=== PATIENT | female | born 1965 | race Two or more races ===

== ENCOUNTER 2017-03-12 06:10 | Emergency (ER) | payer MEDICAID ==
[~2017-03-12] VITALS: Ht 170.2 cm; Wt 59.0 kg
[~2017-03-12 06:10] MED LIST: CYCLOBENZAPRINE10 MG ORAL; IBUPROFEN600 MG ORAL; NKM
[2017-03-12 06:29] VITALS: BP 130/86
--- NOTE | 2017-03-12 06:41 | Emergency Room Report ---
History of Present Illness General Chief Complaint: Flu Like Symptoms Source: Patient Present Illness HPI Patient is a 51-year-old female who presented after increased nasal congestion and coughing. The patient gradual onset of symptoms. She had associated increased sinus pressure. She had been having cough for greater than 2 weeks and not 10 days as previously documented by nursing staff. The patient stated that she had increased facial pain. She stated that she had worsened symptoms with productive cough with yellow-green sputum. The patient states she is an intermittent smoker. She denies any vomiting or diarrhea. She denies sick contacts Allergies: Coded Allergies: No Known Allergies (Unverified , 06/14/16) Patient History Past Medical History: see triage record Reviewed Nursing Documentation: PMH: Agreed, PSxH: Agreed Nursing Documentation-PMH Past Medical History: No Stated History Review of Systems All Other Systems: negative except mentioned in HPI Physical Exam Vital Signs Date Time Temp Pulse Resp B/P (MAP) Pulse Ox O2 Delivery O2 Flow Rate FiO2 03/12/17 06:16 98.1 91 16 130/86 99 Room Air Sp02 EP Interpretation: reviewed, normal General Appearance: normal inspection, well appearing, no apparent distress, alert, GCS 15 Head: atraumatic ENT: normal ENT inspection, hearing grossly normal, normal voice, nasal congestion, other - nasal septum deviation, congestion, nasal discharge Neck: normal inspection, full range of motion, supple, no bony tend Respiratory: normal inspection, lungs clear, normal breath sounds, no respiratory distress, no retraction, no wheezing Cardiovascular #1: regular rate, rhythm, no edema Gastrointestinal: normal inspection, normal bowel sounds, non tender, soft, no guarding, no hernia Genitourinary: no CVA tenderness Musculoskeletal: normal inspection, back normal, normal range of motion Neurologic: normal inspection, alert, oriented x3, responsive, retread technician III-XII nml as tested, motor strength/tone normal, speech normal Psychiatric: normal inspection, judgement/insight normal, mood/affect normal Skin: normal inspection, normal color, no rash Medical Decision Making Diagnostic Impression: Primary Impression: Sinusitis ER Course Patient presented for cough. Differential diagnosis included but was not limited to sinusitis, bronchitis, pneumonia, pulmonary embolism, pericarditis, asthma, foreign body. Chest X-Ray Diagnostic Results Chest X-Ray Diagnostic Results : Chest X-Ray Ordered: Yes # of Views/Limited/Complete: 1 View Indication: Shortness of Breath EP Interpretation: Yes Interpretation: no consolidation, no effusion, no acute cardiopulmonary disease Impression: No acute disease Electronically Signed by: Electronically signed by Dr. Leonidas Montiel M.D. Last Vital Signs Date Time Temp Pulse Resp B/P (MAP) Pulse Ox O2 Delivery O2 Flow Rate FiO2 03/12/17 06:29 91 16 Room Air 03/12/17 06:29 98.1 130/86 99 Status: improved Disposition: HOME, SELF-CARE Condition: Stable Scripts Azithromycin* (ZITHROMAX*) 250 Mg Tablet 250 MG ORAL DAILY, #6 TAB 0 Refills Take two tables once daily for 1 day, then one tablet once daily for 4 days. Prov: Leonidas Montiel 03/12/17 Prednisone* (PREDNISONE*) 20 Mg Tablet 40 MG ORAL DAILY, #8 TAB Prov: Leonidas Montiel 03/12/17 Loratadine/Pseudoephedrine (CLARITIN-D 24 HOUR TABLET) 1 Each Tab.er.24h 1 TAB PO DAILY, #20 TAB Prov: Leonidas Montiel 03/12/17 Mometasone Furoate (NASONEX) 17 Gm [place].pump 2 SPRAYS NASAL DAILY, #17 GM 0 Refills Prov: Leonidas Montiel 03/12/17 Leonidas Montiel Mar 12, 2017 06:41
[2017-03-12] MEDS ORDERED: NASONEX17 GM NASAL (06:43)
[2017-03-12] MEDS ORDERED: CLARITIN-D 241 EACH PO (06:43)
[2017-03-12] MEDS ORDERED: Albuterol ud Inhalation HHN ONE (06:45)
[2017-03-12] MEDS ORDERED: ZITHROMAX250 MG ORAL (07:03)
[2017-03-12] MEDS ORDERED: PREDNISONE20 MG ORAL (07:03)
[2017-03-12 07:12] VITALS: BP 130/86
--- NOTE | 2017-03-12 11:06 | Diagnostic Imaging Report ---
Indication: SOB Technique: One view of the chest Comparison: none Findings: Lungs and pleural spaces are clear. Heart size is normal. Impression: No acute process
== END 2017-03-12 07:12 | disposition home or self-care (01) ==
LOC: EMR 06:39
DX: J32.9 Chronic sinusitis, unspecified (principal)
CPT/HCPCS: 71010; 99284

== ENCOUNTER 2017-08-30 21:06 | Emergency (ER) | payer MEDICAID ==
[~2017-08-30] VITALS: Ht 170.2 cm; Wt 60.3 kg
[~2017-08-30 21:06] MED LIST changes: +CLARITIN-D 241 EACH PO; +NASONEX17 GM NASAL; +PREDNISONE20 MG ORAL; +ZITHROMAX250 MG ORAL
[2017-08-30 21:20] VITALS: BP 117/76
[2017-08-30] MEDS ORDERED: AZITHROMYCIN250 MG ORAL (21:51)
[2017-08-30] MEDS ORDERED: IBUPROFEN600 MG ORAL (21:51)
--- NOTE | 2017-08-30 21:51 | Emergency Room Report ---
History of Present Illness General Chief Complaint: Flu Like Symptoms Source: Patient Present Illness HPI Is a 52-year-old female with an past medical history. She presents with chief complaint of sore throat and fever. Onset yesterday. Fever subjective but she said she felt very hot and has chills. Throat pain is 7 out of 10. Worse with swallowing. No cough or congestion. No nausea no vomiting. No urinary complaint. Allergies: Coded Allergies: No Known Allergies (Unverified , 06/14/16) Patient History Past Medical History: see triage record, old chart reviewed Past Surgical History: none Pertinent Family History: none Social History: Denies: smoking Last Menstrual Period: 3 weeks ago Now: No Immunizations: other Reviewed Nursing Documentation: PMH: Agreed, PSxH: Agreed Nursing Documentation-PMH Past Medical History: No Stated History Review of Systems Constitutional: Reports: fever Eye: Denies: eye pain, blurred vision ENT: Reports: throat pain, Denies: ear pain, nose congestion, throat swelling Respiratory: Denies: cough, shortness of breath Cardiovascular: Denies: chest pain, palpitations Gastrointestinal: Denies: abdominal pain, diarrhea, nausea, vomiting Musculoskeletal: Denies: back pain, joint pain Skin: Denies: rash Neurological: Denies: headache, numbness Endocrine: Denies: increased thirst, increased urine Hematologic/Lymphatic: Denies: easy bruising All Other Systems: negative except mentioned in HPI Physical Exam Vital Signs Date Time Temp Pulse Resp B/P (MAP) Pulse Ox O2 Delivery O2 Flow Rate FiO2 08/30/17 21:12 100.6 102 18 117/76 99 100.6 vitals with fever Sp02 EP Interpretation: reviewed, normal General Appearance: well appearing, no apparent distress, alert Head: normocephalic, atraumatic Eyes: bilateral eye PERRL, bilateral eye EOMI ENT: hearing grossly normal, tonsillar swelling, pharyngeal erythema, tonsillar exudate Neck: full range of motion, supple, no meningismus Respiratory: chest non-tender, lungs clear, normal breath sounds Cardiovascular #1: regular rate, rhythm, no murmur Gastrointestinal: normal bowel sounds, non tender, no mass, no organomegaly, no bruit, non-distended Musculoskeletal: back normal, gait/station normal, normal range of motion Psychiatric: mood/affect normal Skin: warm/dry Medical Decision Making Diagnostic Impression: Primary Impression: Acute tonsillitis Qualified Codes: J03.90 - Acute tonsillitis, unspecified ER Course Patient with acute tonsillitis, most likely strep since she has no other symptoms of viral illness. No evidence of peritonsillar abscess or retropharyngeal abscess. No evidence of Micah angina. No sepsis. We'll discharge home. Last Vital Signs Date Time Temp Pulse Resp B/P (MAP) Pulse Ox O2 Delivery O2 Flow Rate FiO2 08/30/17 21:12 100.6 102 18 117/76 99 100.6 Status: improved Disposition: HOME, SELF-CARE Condition: Stable Scripts Azithromycin* (ZITHROMAX*) 250 Mg Tablet 250 MG ORAL DAILY, #6 TAB 0 Refills Take two tablets by mouth today, then take one tablet by mouth daily for four days Prov: TERI CUMMINGS M.D. 08/30/17 Ibuprofen* (MOTRIN*) 600 Mg Tablet 600 MG ORAL THREE TIMES A DAY, #30 TAB 0 Refills Prov: TERI CUMMINGS M.D. 08/30/17 Additional Instructions: Follow-up with your in 7 days. Lev iyer. Return if worse. TERI CUMMINGS M.D. Aug 30, 2017 21:51
[2017-08-30 21:58] VITALS: BP 117/76
== END 2017-08-30 23:00 | disposition home or self-care (01) ==
LOC: EMR 22:53
DX: J03.90 Acute tonsillitis, unspecified (principal)
CPT/HCPCS: 99284; J7512

== ENCOUNTER 2018-02-13 01:13 | Emergency (ER) | payer MEDICAID ==
[~2018-02-13] VITALS: Ht 172.7 cm; Wt 59.0 kg
[~2018-02-13 01:13] MED LIST changes: +AZITHROMYCIN250 MG ORAL
[2018-02-13 01:20] VITALS: BP 131/80
--- NOTE | 2018-02-13 01:27 | Emergency Room Report ---
History of Present Illness General Chief Complaint: Pain Source: Patient Present Illness HPI Is a 52-year-old female with no past medical history. She presents with right rib pain. She woke up with his pain. Sharp in nature. Worse with palpation. Worse with twisting motion. No trauma. No fever chills but no nausea no vomiting. No dysuria frequency or hematuria. Pain is 8 out of 10. Allergies: Coded Allergies: No Known Allergies (Unverified , 06/14/16) Patient History Past Medical History: see triage record, old chart reviewed Past Surgical History: other Pertinent Family History: none Social History: Reports: smoking Last Menstrual Period: n/a Now: No Immunizations: other Reviewed Nursing Documentation: PMH: Agreed; PSxH: Agreed Nursing Documentation-PMH Past Medical History: No Stated History Review of Systems Eye: Denies: eye pain, blurred vision ENT: Denies: ear pain, nose congestion, throat swelling Respiratory: Denies: cough, shortness of breath Cardiovascular: Reports: chest pain; Denies: palpitations Gastrointestinal: Denies: abdominal pain, diarrhea, nausea, vomiting Musculoskeletal: Denies: back pain, joint pain Skin: Denies: rash Neurological: Denies: headache, numbness Endocrine: Denies: increased thirst, increased urine Hematologic/Lymphatic: Denies: easy bruising All Other Systems: negative except mentioned in HPI Physical Exam Vital Signs Date Time Temp Pulse Resp B/P (MAP) Pulse Ox O2 Delivery O2 Flow Rate FiO2 02/13/18 01:18 98.0 75 16 131/80 97 Room Air 98.1 Vitals normal Sp02 EP Interpretation: reviewed, normal General Appearance: well appearing, no apparent distress, alert Head: normocephalic, atraumatic Eyes: bilateral eye PERRL, bilateral eye EOMI ENT: hearing grossly normal, normal pharynx Neck: full range of motion, supple, no meningismus Respiratory: lungs clear, normal breath sounds, other - tenderness to the inferior and lateral right rib. No ecchymosis. No rash. Cardiovascular #1: regular rate, rhythm, no murmur Gastrointestinal: normal bowel sounds, non tender, no mass, no organomegaly, no bruit, non-distended Musculoskeletal: back normal, gait/station normal, normal range of motion Psychiatric: mood/affect normal Skin: warm/dry Medical Decision Making Diagnostic Impression: Primary Impression: Rib pain on right side Additional Impression: UTI (urinary tract infection) Qualified Codes: N30.00 - Acute cystitis without hematuria ER Course Patient presents with rib pain. No fracture dislocation. No evidence of ACS. Doubt PE since patient is not short of breath. Not tachycardic or hypoxic. Pain is very reproducible. She has no right upper quadrant pain to indicate gallbladder/biliary colic. This may be zoster but there is no rash. Other X-Ray Diagnostic Results Other X-Ray Diagnostic Results : X-Ray ordered: right ribs x-rays # of Views/Limited Vs Complete: 4 View Indication: Pain EP Interpretation: Yes Interpretation: no dislocation, no soft tissue swelling, no fractures Impression: No acute disease Electronically Signed by: Axel Martinez MD Last Vital Signs Date Time Temp Pulse Resp B/P (MAP) Pulse Ox O2 Delivery O2 Flow Rate FiO2 02/13/18 01:18 98.0 75 16 131/80 97 Room Air 98.1 Status: improved Disposition: HOME, SELF-CARE Condition: Stable Scripts Ibuprofen* (MOTRIN*) 600 Mg Tablet 600 MG ORAL THREE TIMES A DAY, #30 TAB 0 Refills Prov: AXEL MARTINEZ M.D. 02/13/18 Additional Instructions: Follow-up with your doctor in 7 days. Return if symptom worsen. AXEL MARTINEZ M.D. Feb 13, 2018 01:27
[2018-02-13 01:35] LABS: BILIRUBIN, URINE NEGATIVE (NEGATIVE); GLUCOSE, URINE (UA) NEGATIVE (NEGATIVE); KETONES,URINE NEGATIVE (NEGATIVE); LEUKOCYTE ESTERASE ,URINE 1+ (NEGATIVE); NITRITE,URINE NEGATIVE (NEGATIVE); PH,URINE 7 (4.5-8.0); PROTEIN,URINE NEGATIVE (NEGATIVE); UROBILINOGEN,URINE NORMAL MG/DL (0.0-1.0)
[2018-02-13 01:40] LABS: APPEARANCE,URINE CLOUDY; COLOR,URINE YELLOW
[2018-02-13] MEDS ORDERED: IBUPROFEN600 MG ORAL (01:53)
[2018-02-13] MEDS ORDERED: NITROFURANTOIN100 M2 ORAL (01:54)
[2018-02-13] MEDS ORDERED: Bacitracin Oint UD TOPIC ONE (02:00)
[2018-02-13 02:01] VITALS: BP 131/80
--- NOTE | 2018-02-13 11:21 | Diagnostic Imaging Report ---
Indication: Right chest pain Comparison: None Findings: 3 view rib series performed on the right side. There is no pneumothorax or evidence of a pleural effusion. The right lung appears clear. No acute fracture identified. IMPRESSION: No acute fracture identified
== END 2018-02-13 02:05 | disposition home or self-care (01) ==
LOC: EMR 01:41
DX: N39.0 Urinary tract infection, site not specified (principal); R07.81 Pleurodynia
CPT/HCPCS: 81003; 87086; 99283

== ENCOUNTER 2018-05-23 14:09 | Emergency (ER) | payer MEDICAID ==
[~2018-05-23] VITALS: Ht 170.2 cm; Wt 59.0 kg
[~2018-05-23 14:09] MED LIST changes: +NITROFURANTOIN100 M2 ORAL
[2018-05-23] MEDS ORDERED: NKM (15:08)
--- NOTE | 2018-05-23 15:42 | Emergency Room Report ---
History of Present Illness General Chief Complaint: Upper Respiratory Illness Source: Family Member Present Illness HPI 53-year-old female with no significant past medical history her complaining of 2 weeks of sinus pressure and pain with green mucus. She denies cough, fever, chills, sore throat. She denies SOB, chest pain, palpitation, no other associated symptoms. She has been taking DayQuil and NyQuil with minimal symptom relief. As dysuria, abdominal pain, nausea vomiting, no other associated symptoms Allergies: Coded Allergies: No Known Allergies (Unverified , 06/14/16) Patient History Past Medical History: see triage record Past Surgical History: none Pertinent Family History: unable to obtain Now: No Immunizations: UTD Reviewed Nursing Documentation: PMH: Agreed; PSxH: Agreed Nursing Documentation-PMH Past Medical History: No Stated History Review of Systems All Other Systems: negative except mentioned in HPI Physical Exam Vital Signs Date Time Temp Pulse Resp B/P (MAP) Pulse Ox O2 Delivery O2 Flow Rate FiO2 05/23/18 15:21 97.7 59 18 144/92 98 Room Air Sp02 EP Interpretation: reviewed, normal General Appearance: normal inspection, well appearing, no apparent distress, alert, GCS 15 Head: normocephalic, atraumatic Eyes: bilateral eye normal inspection, bilateral eye PERRL ENT: hearing grossly normal, no angioedema, normal voice, TMs + canals normal, pharyngeal erythema, other - left frontal and maxillary sinuses tender to palpation Neck: normal inspection, full range of motion, supple Respiratory: normal inspection, chest non-tender, lungs clear, no respiratory distress, no retraction, no accessory muscle use, no wheezing Cardiovascular #1: normal inspection, no edema, no gallop, no murmur Gastrointestinal: normal inspection, non tender, soft Rectal: deferred Genitourinary: deferred Musculoskeletal: normal inspection, back normal Neurologic: normal inspection, alert, oriented x3, responsive Psychiatric: normal inspection, judgement/insight normal Lymphatic: normal inspection, no adenopathy Medical Decision Making PA Attestation all diagnosis and treatment plans were reviewed and discussed with my supervising physician Dr. Garduno Diagnostic Impression: Primary Impression: Sinusitis ER Course 53-year-old female with no significant past medical history her complaining of 2 weeks of sinus pressure and pain with green mucus. She denies cough, fever, chills, sore throat. She denies SOB, chest pain, palpitation, no other associated symptoms. She has been taking DayQuil and NyQuil with minimal symptom relief. As dysuria, abdominal pain, nausea vomiting, no other associated symptoms Ddx considered but are not limited to sinusitis, URI, bronchitis Vital signs: are WNL, pt. is afebrile H&PE are most consistent with sinusitis ORDERS: Augmentin, Flonase ED INTERVENTIONS: None required at this time. DISCHARGE: At this time pt. is stable for d/c to home. Will provide printed patient care instructions, and any necessary prescriptions. Care plan and follow up instructions have been discussed with the patient prior to discharge. Last Vital Signs Date Time Temp Pulse Resp B/P (MAP) Pulse Ox O2 Delivery O2 Flow Rate FiO2 05/23/18 15:21 97.7 59 18 144/92 98 Room Air Disposition: HOME, SELF-CARE Condition: Stable Scripts Fluticasone Propionate (Flonase Allergy Relief) 9.9 Ml [place].susp 2 PUFFS NS BID, #1 SPRAY Prov: Jason Wen 05/23/18 Amoxicillin/Potassium Clav 875-125* (AUGMENTIN 875-125 TABLET*) 1 Each Tablet 1 TAB ORAL TWICE A DAY for 10 Days, #20 TAB Prov: Jason Wen 05/23/18 Patient Instructions: Sinusitis, Adult, [id number] Jason Wen May 23, 2018 15:42
[2018-05-23] MEDS ORDERED: AUGMENTIN 875-1 EAC1 ORAL (15:43)
[2018-05-23] MEDS ORDERED: FLONASE ALLERG9.9 ML NS (15:43)
[2018-05-23 15:51] VITALS: BP 142/87
[2018-05-23 15:52] VITALS: BP 142/87
== END 2018-05-23 16:00 | disposition home or self-care (01) ==
LOC: EMR 15:00
DX: J32.9 Chronic sinusitis, unspecified (principal)
CPT/HCPCS: 99283

== ENCOUNTER 2018-08-29 05:25 | Emergency (ER) | payer MEDICAID ==
[~2018-08-29] VITALS: Ht 170.2 cm; Wt 60.8 kg
[~2018-08-29 05:25] MED LIST changes: +AUGMENTIN 875-1 EAC1 ORAL; +FLONASE ALLERG9.9 ML NS
[2018-08-29 05:30] VITALS: BP 128/77
--- NOTE | 2018-08-29 05:30 | NUR ---
ED Nurse Note: pt walked in with c/o left wrist pain x 3 weeks. denies trauma. Pt is AO x 4times, VSS, on room air no distress. DEIDRAD seen Pt at bedside.
--- NOTE | 2018-08-29 05:40 | Emergency Room Report ---
History of Present Illness General Chief Complaint: Pain Source: Patient Present Illness HPI Is a 53-year-old female with no past medical history. She presents with chief complaint of left wrist pain. No trauma. Onset for about 2 months now. Worse with movement. Localized to the radial aspect of the left wrist. She is right- hand dominant. Pain is 7 out of 10. Worse with movement. No fever chills but no drainage. Allergies: Coded Allergies: No Known Allergies (Unverified , 06/14/16) Patient History Past Medical History: see triage record, old chart reviewed Past Surgical History: other Pertinent Family History: none Social History: Denies: smoking Last Menstrual Period: jun 2018 Now: No Immunizations: other Reviewed Nursing Documentation: PMH: Agreed; PSxH: Agreed Nursing Documentation-PMH Past Medical History: No Stated History Review of Systems Eye: Denies: eye pain, blurred vision ENT: Denies: ear pain, nose congestion, throat swelling Respiratory: Denies: cough, shortness of breath Cardiovascular: Denies: chest pain, palpitations Gastrointestinal: Denies: abdominal pain, diarrhea, nausea, vomiting Musculoskeletal: Reports: joint pain; Denies: back pain Skin: Denies: rash Neurological: Denies: headache, numbness Endocrine: Denies: increased thirst, increased urine Hematologic/Lymphatic: Denies: easy bruising All Other Systems: negative except mentioned in HPI Physical Exam Vital Signs Date Time Temp Pulse Resp B/P (MAP) Pulse Ox O2 Delivery O2 Flow Rate FiO2 08/29/18 05:28 97.9 78 16 132/88 100 Room Air vitals normal Sp02 EP Interpretation: reviewed, normal General Appearance: well appearing, no apparent distress, alert Head: normocephalic, atraumatic Eyes: bilateral eye PERRL, bilateral eye EOMI ENT: hearing grossly normal, normal pharynx Neck: full range of motion, supple, no meningismus Respiratory: chest non-tender, lungs clear, normal breath sounds Cardiovascular #1: regular rate, rhythm, no murmur Gastrointestinal: normal bowel sounds, non tender, no mass, no organomegaly, no bruit, non-distended Musculoskeletal: back normal, gait/station normal, normal range of motion, tender - Left wrist: Has tenderness of the distal radius joint. Worse with wrist extension. No crepitus. No redness or fever. Pulses normal. Elbow nontender. Neurologic: alert, oriented x3 Psychiatric: mood/affect normal Skin: warm/dry Procedures Splinting Splinting : Consent: Verbal Location: left wrist Pre-Made Type: velcro Splint: thumb spica Pre-Proc Neuro Vasc Exam: normal Post-Proc Neuro Vasc Exam: normal Patient Tolerated: Well Complications: None Medical Decision Making Diagnostic Impression: Primary Impression: Left wrist sprain Qualified Codes: S63.502A - Unspecified sprain of left wrist, initial encounter ER Course Patient with left wrist sprain and chronic pain. No fracture or dislocation. No evidence of septic joint. We'll discharge home. Other X-Ray Diagnostic Results Other X-Ray Diagnostic Results : X-Ray ordered: Left wrist x-rays # of Views/Limited Vs Complete: 3 View Indication: Pain EP Interpretation: Yes Interpretation: no dislocation, no soft tissue swelling, no fractures Impression: No acute disease Electronically Signed by: Axel Martinez MD Last Vital Signs Date Time Temp Pulse Resp B/P (MAP) Pulse Ox O2 Delivery O2 Flow Rate FiO2 08/29/18 05:28 97.9 78 16 132/88 100 Room Air Status: improved Disposition: HOME, SELF-CARE Condition: Stable Scripts Ibuprofen* (MOTRIN*) 600 Mg Tablet 600 MG ORAL THREE TIMES A DAY, #30 TAB 0 Refills Prov: Axel Martinez MD 08/29/18 Additional Instructions: Follow-up with your doctor in 7 days. Return if worse. Axel Martinez MD Aug 29, 2018 05:40
--- NOTE | 2018-08-29 05:50 | NUR ---
ER DISCHARGE NOTE: Patient is cleared to be discharged per ERMD, pt is aox4, on room air, with stable vital signs. pt was given dc and prescription instructions, pt was able to verbalize understanding, pt id band removed without complications. pt is able to ambulate with steady gait. pt took all belongings.
[2018-08-29] MEDS ORDERED: IBUPROFEN600 MG ORAL (05:55)
[2018-08-29 06:07] VITALS: BP 128/77
== END 2018-08-29 06:08 | disposition home or self-care (01) ==
LOC: EMR 05:50
DX: S63.502A Unspecified sprain of left wrist, initial encounter (principal); X58.XXXA Exposure to other specified factors, initial encounter; Y92.9 Unspecified place or not applicable; G89.29 Other chronic pain
CPT/HCPCS: 99283

== ENCOUNTER 2018-09-12 00:46 | Emergency (ER) | payer MEDICAID ==
[~2018-09-12] VITALS: Ht 170.2 cm; Wt 61.2 kg
[2018-09-12 00:58] VITALS: BP 163/96
--- NOTE | 2018-09-12 00:59 | NUR ---
ED Nurse Note: pt walked in c/o left rib pain, pt states she accidentally hit her rib area when jumping into canoe yesterday in [place] and started having pain. noted contusion on left rib area w/ tenderness but no obvious deformity nor paradoxical movement noted. will cont monitor. airway intact, resp even and unlabored on RA.
[2018-09-12] MEDS ORDERED: IBUPROFEN600 MG ORAL (01:22)
--- NOTE | 2018-09-12 01:22 | Emergency Room Report ---
History of Present Illness General Chief Complaint: Pain Source: Patient Present Illness HPI This is a 53-year-old female with no significant past medical history. She presents with chief complaint of left rib pain. Onset was a couple days ago. She was in [place] and she jumped into a canoe. She said she twisted her body and felt pain to the left rib area. Increasing pain since then. Worse with movement. Worse with palpation. No shortness of breath. No trauma. Denies any calf tenderness or swelling. She was concerned that it may be something else. No other complaint. Pain is 7 out of 10. Allergies: Coded Allergies: No Known Allergies (Unverified , 09/12/18) Patient History Past Medical History: see triage record, old chart reviewed Past Surgical History: none Pertinent Family History: none Social History: Denies: smoking Now: No Immunizations: other Reviewed Nursing Documentation: PMH: Agreed; PSxH: Agreed Nursing Documentation-PMH Past Medical History: No Stated History Review of Systems Eye: Denies: eye pain, blurred vision ENT: Denies: ear pain, nose congestion, throat swelling Respiratory: Denies: cough, shortness of breath Cardiovascular: Denies: chest pain, palpitations Gastrointestinal: Denies: abdominal pain, diarrhea, nausea, vomiting Musculoskeletal: Denies: back pain, joint pain Skin: Denies: rash Neurological: Denies: headache, numbness Endocrine: Denies: increased thirst, increased urine Hematologic/Lymphatic: Denies: easy bruising All Other Systems: negative except mentioned in HPI Physical Exam Vital Signs Date Time Temp Pulse Resp B/P (MAP) Pulse Ox O2 Delivery O2 Flow Rate FiO2 09/12/18 00:50 98.1 85 18 163/96 97 Room Air vitals with high blood pressure Sp02 EP Interpretation: reviewed, normal General Appearance: well appearing, no apparent distress, alert Head: normocephalic, atraumatic Eyes: bilateral eye PERRL, bilateral eye EOMI ENT: hearing grossly normal, normal pharynx Neck: full range of motion, supple, no meningismus Respiratory: chest non-tender, lungs clear, normal breath sounds, other - Mild tenderness over the left rib area at the costophrenic angle. No crepitance. No ecchymosis. Cardiovascular #1: regular rate, rhythm, no murmur Gastrointestinal: normal bowel sounds, non tender, no mass, no organomegaly, no bruit, non-distended Musculoskeletal: back normal, gait/station normal, normal range of motion Psychiatric: mood/affect normal Skin: warm/dry Medical Decision Making Diagnostic Impression: Primary Impression: Rib sprain Qualified Codes: S23.41XA - Sprain of ribs, initial encounter ER Course Patient with rib pain. No evidence of any fracture. No evidence of any PE, dissection, pneumonia to name a few. Last Vital Signs Date Time Temp Pulse Resp B/P (MAP) Pulse Ox O2 Delivery O2 Flow Rate FiO2 09/12/18 00:58 98.1 86 18 163/96 97 Room Air Status: unchanged Disposition: HOME, SELF-CARE Condition: Stable Scripts Ibuprofen* (MOTRIN*) 600 Mg Tablet 600 MG ORAL THREE TIMES A DAY, #30 TAB 0 Refills Prov: Axel Martinez MD 09/12/18 Referrals: [facility]ERR[facility] (PCP) Additional Instructions: Follow-up with your doctor in 7 days. Return if symptom worsen. Axel Martinez MD Sep 12, 2018 01:22
--- NOTE | 2018-09-12 01:24 | NUR ---
ED Nurse Note: pt cleared to be d/c per ERMD, pt discharge and aftercare instruction provided w/ prescription, pt education done via discussion and handout, pt verbalized undertanding and agrees with plan, pt advised to follow up with pcp or return to ed if sx worsen or new sx develop, vss, ambulatory w/ steady gait, left w/ all belonging.
[2018-09-12 01:25] VITALS: BP 129/67
== END 2018-09-12 01:25 | disposition home or self-care (01) ==
LOC: EMR 01:04
DX: S23.41XA Sprain of ribs, initial encounter (principal); X50.1XXA Overexertion from prolonged static or awkward postures, initial encounter; Y92.89 Other specified places as the place of occurrence of the external cause
CPT/HCPCS: 99282

== ENCOUNTER 2018-11-19 20:01 | Emergency (ER) | payer MEDICAID ==
[~2018-11-19] VITALS: Ht 172.7 cm; Wt 63.5 kg
[2018-11-19 20:15] VITALS: BP 121/73
[2018-11-19] MEDS ORDERED: Sodium Chloride 1,900 ML IVLG ONE (20:30)
[2018-11-19] MEDS: Ampicillin/Sulbactam Sod 3 GM in NS 110 ML IV SCH ×3 (21:11→21:59)
[2018-11-19 21:17] LABS: HEMATOCRIT 37.8 % (37.0-47.0); HEMOGLOBIN 13.3 G/DL (12.0-16.0); MEAN CORPUSCULAR VOLUME 97 FL (80-99); PLATELET COUNT 265 K/UL (150-450); RED BLOOD COUNT 3.92 M/UL (4.20-5.40); RED CELL DISTRIBUTION WIDTH 10.4 % (11.6-14.8); WHITE BLOOD COUNT 14.7 K/UL (4.8-10.8)
[2018-11-19 21:18] LABS: BASOPHILS % (AUTO) 0.7 % (0.0-2.0); EOSINOPHILS % (AUTO) 0.7 % (0.0-3.0); LYMPHOCYTES % (AUTO) 8.3 % (20.0-45.0); MONOCYTES % (AUTO) 4.2 % (1.0-10.0); NEUTROPHILS % (AUTO) 86.1 % (45.0-75.0)
[2018-11-19 21:19] LABS: APPEARANCE,URINE CLEAR; BILIRUBIN, URINE NEGATIVE (NEGATIVE); COLOR,URINE PALE YELLOW; GLUCOSE, URINE (UA) NEGATIVE (NEGATIVE); KETONES,URINE NEGATIVE (NEGATIVE); LEUKOCYTE ESTERASE ,URINE NEGATIVE (NEGATIVE); NITRITE,URINE NEGATIVE (NEGATIVE); PH,URINE 5 (4.5-8.0); PROTEIN,URINE NEGATIVE (NEGATIVE); UROBILINOGEN,URINE NORMAL MG/DL (0.0-1.0)
--- NOTE | 2018-11-19 21:19 | Emergency Room Report ---
History of Present Illness General Chief Complaint: Fever Source: Patient Present Illness HPI 53-year-old female comes to the ER for 1 day history of myalgias fevers chills, mild cough, bilateral earache, congestion. Patient denies any vomiting, diarrhea, abdominal pain, chest pain, hemoptysis, sputum production, urinary complaints but does admit that she just came from [place] 3 days ago. Allergies: Coded Allergies: No Known Allergies (Unverified , 09/12/18) Patient History Past Medical History: see triage record Last Menstrual Period: Oct 29 2018 Now: No Reviewed Nursing Documentation: PMH: Agreed; PSxH: Agreed Nursing Documentation-PMH Past Medical History: No Stated History Review of Systems All Other Systems: negative except mentioned in HPI Physical Exam Vital Signs Date Time Temp Pulse Resp B/P (MAP) Pulse Ox O2 Delivery O2 Flow Rate FiO2 11/19/18 20:07 100.8 92 18 121/73 (89) 98 Room Air Sp02 EP Interpretation: reviewed, normal General Appearance: no apparent distress, alert, non-toxic Head: normocephalic Eyes: bilateral eye normal inspection, bilateral eye PERRL, bilateral eye EOMI ENT: normal ENT inspection, hearing grossly normal, normal pharynx, no angioedema, normal voice, TMs + canals normal, uvula midline, moist mucus membranes Neck: normal inspection, full range of motion, supple, thyroid normal, no meningismus, supple/symm/no masses Respiratory: chest non-tender, lungs clear, normal breath sounds, no rhonchi, no respiratory distress, no retraction, no accessory muscle use, no wheezing, speaking full sentences, chest symmetrical, palpation of chest normal Cardiovascular #1: normal peripheral pulses, regular rate, rhythm, no edema, no gallop, no JVD, no murmur, no rub Cardiovascular #2: 2+ radial (R), 2+ radial (L) Gastrointestinal: normal inspection, non tender, soft, no mass, no guarding, no rebound Rectal: deferred Genitourinary: normal inspection, no CVA tenderness Musculoskeletal: back normal, gait/station normal, normal range of motion, non- tender, no calf tenderness Neurologic: alert, responsive, bog worker III-XII nml as tested, motor strength/tone normal, sensory intact, speech normal Psychiatric: judgement/insight normal, memory normal, mood/affect normal, anxious Skin: normal color, no rash, warm/dry, normal turgor Lymphatic: no adenopathy Medical Decision Making Diagnostic Impression: Primary Impression: Fever ER Course In the first of arrival, patient had 30 cc/kg IV fluid bolus resuscitation, blood cultures, lactic acid, broad-spectrum antibiotics initiated. Suspect viral syndrome, patient extremely well-appearing do not have suspicion for meningitis or other severe pathology. Since urinalysis and chest x-ray unremarkable for infection, her ear, nose and throat exam are also fairly benign, and she has no abdominal pain, nausea, vomiting, diarrhea, gynecologic complaints, skin rashes, I do not suspect any other serious bacterial infections. She will be discharged, diagnosis fever of unknown origin, blood culture sent, patient extremely well-appearing, suspect viral syndrome. EKG Diagnostic Results EP Interpretation: no stemi Rate: normal Rhythm: NSR ST Segments: no acute changes ASA given to the pt in ED: No Chest X-Ray Diagnostic Results Chest X-Ray Diagnostic Results : Chest X-Ray Ordered: Yes # of Views/Limited/Complete: 1 View Indication: Other - fever EP Interpretation: Yes Interpretation: no consolidation, no effusion, no pneumothorax, no acute cardiopulmonary disease Impression: No acute disease Electronically Signed by: Yolande Bravo MD Last Vital Signs Date Time Temp Pulse Resp B/P (MAP) Pulse Ox O2 Delivery O2 Flow Rate FiO2 11/19/18 20:07 100.8 92 18 121/73 (89) 98 Room Air Disposition: HOME, SELF-CARE Condition: Stable Referrals: [facility],REFERRING (PCP) YOLANDE BRAVO M.D Nov 19, 2018 21:19
[2018-11-19 21:27] LABS: ANION GAP 10 mmol/L (5-15); BLOOD UREA NITROGEN 12 mg/dL (7-18); CARBON DIOXIDE 23 MMOL/L (21-32); CHLORIDE 101 MMOL/L (98-107); CREATININE 0.7 MG/DL (0.55-1.30); POTASSIUM 3.6 MMOL/L (3.5-5.1); SODIUM 134 MMOL/L (136-145)
[2018-11-19 21:32] LABS: ALANINE AMINOTRANSFERASE 15 U/L (12-78); ALBUMIN 3.1 G/DL (3.4-5.0); ALBUMIN/GLOBULIN RATIO 0.8 (1.0-2.7); ALKALINE PHOSPHATASE 82 U/L (46-116); ASPARTATE AMINO TRANSFERASE 22 U/L (15-37); BILIRUBIN,TOTAL 0.3 MG/DL (0.2-1.0); CREATINE KINASE 195 U/L (26-308)
[2018-11-19] MEDS ORDERED: Acetaminophen 500mg (ES) tab ORAL ONE (21:45)
[2018-11-19] MEDS ORDERED: IBUPROFEN600 MG ORAL (21:59)
[2018-11-19] MEDS ORDERED: ACETAMINOPHEN325 M1 ORAL (21:59)
[2018-11-19 22:05] VITALS: BP 123/71
[2018-11-19 22:15] VITALS: BP 123/71
--- NOTE | 2018-11-20 17:47 | Diagnostic Imaging Report ---
Indication: Reason For Exam: COUGH Technique: One view of the chest Comparison: 03/12/2017 Findings: Lungs and pleural spaces are clear. Heart size is normal. There is no significant interim change Impression: No acute process
== END 2018-11-19 22:15 | disposition home or self-care (01) ==
LOC: EMR 20:47
DX: R50.9 Fever, unspecified (principal)
CPT/HCPCS: 36415; 71045; 80053; 81003; 82550; 83605; 84484; 85025; 87040; 93005; 96365; 99284; J0295

== ENCOUNTER 2019-02-23 11:41 | Emergency (ER) | payer MEDICAID ==
[~2019-02-23] VITALS: Ht 170.2 cm; Wt 61.2 kg
[~2019-02-23 11:41] MED LIST changes: +ACETAMINOPHEN325 M1 ORAL
[2019-02-23] MEDS ORDERED: NKM (11:59)
--- NOTE | 2019-02-23 12:03 | NUR ---
ED Nurse Note: Pt. AAOx4. ambulatory. left great toe pain x3 days after dropping a heavy potted plant onto it. edema and redness noted.
[2019-02-23] MEDS ORDERED: NORCO 5-325 TA1 EACH ORAL (12:45)
[2019-02-23] MEDS ORDERED: IBUPROFEN600 MG ORAL (12:45)
--- NOTE | 2019-02-23 12:46 | NUR ---
ED Nurse Note: PT PROVIDED WITH CRUTCHES AND EDUCATED ON PROPER USE OF ASSISTIVE DEVICE. PT ABLE TO DEMONSTRATE BACK STEADY AMBULATION WITH PROPER USE OF CRUTCHES.
--- NOTE | 2019-02-23 12:58 | NUR ---
ED Nurse Note: PT SITTING PEACEFULLY IN BED IN NAD. AOX4. PRESCRIPTION AND DISCHARGE PAPERWORK EXPLAINED TO PT. PT VERBALIZES UNDERSTANDING AND ALL QUESTIONS ANSWERED. PRESCRIPTION AND DISCHARGE PAPERWORK GIVEN TO PT AND ID RAMSEY REMOVED. PT WALKED OUT OF ER WITH STEADY GAIT WITH PROPER USE OF ASSISTIVE DEVICE AND ALL BELONGINGS.
[2019-02-23 12:59] VITALS: BP 132/74
--- NOTE | 2019-02-23 15:35 | Diagnostic Imaging Report ---
Indication: Traumatic pain Technique: 3 views left foot Comparison: none Findings: There is a nondisplaced irregular fracture of the distal aspect of the first proximal phalanx. This extends into the articular surface. No other acute fractures. No dislocations. The joint spaces are preserved Impression: Positive for intra-articular first proximal phalangeal fracture This agrees with the preliminary interpretation provided by the emergency room physician
--- NOTE | 2019-02-23 21:43 | Emergency Room Report ---
History of Present Illness General Chief Complaint: Lower Extremity Injury Source: Patient Present Illness HPI patient presented to the emergency department complaining of left great toe pain. patient states that she accidentally dropped a plant pot on it yesterday. The great toe is red and it hurts to walk. There is also a small abrasion on it. Patient denies any prior injury. No other associated signs and symptoms. No modifying factors. No other complaints noted. Allergies: Coded Allergies: No Known Allergies (Unverified , 09/12/18) Patient History PMH Narrative prior left upper extremity injury. Past Surgical History: other - prior left upper extremity injury. Social History: Denies: smoking, alcohol use, drug use Last Menstrual Period: irreg Now: No Reviewed Nursing Documentation: PMH: Agreed; PSxH: Agreed Nursing Documentation-PMH Past Medical History: No Stated History Review of Systems All Other Systems: negative except mentioned in HPI Physical Exam Vital Signs Date Time Temp Pulse Resp B/P (MAP) Pulse Ox O2 Delivery O2 Flow Rate FiO2 02/23/19 11:48 97.3 78 20 137/70 (92) 97 Room Air Sp02 EP Interpretation: reviewed, normal General Appearance: normal inspection, well appearing, no apparent distress, alert Head: atraumatic Eyes: bilateral eye normal inspection ENT: normal ENT inspection, hearing grossly normal, normal voice Neck: normal inspection, full range of motion, supple Respiratory: lungs clear, normal breath sounds, no respiratory distress, no retraction, no wheezing Cardiovascular #1: regular rate, rhythm, no edema Gastrointestinal: normal inspection, normal bowel sounds, non tender, soft, no guarding, no hernia Genitourinary: no CVA tenderness Musculoskeletal: back normal, swelling - and tender lefg great toe and red ness Neurologic: normal inspection, alert, responsive, speech normal Psychiatric: normal inspection, judgement/insight normal, mood/affect normal Skin: no rash Medical Decision Making Diagnostic Impression: Primary Impression: Foot fracture, left ER Course patient present to the emergency department complaining of left great toe pain. differential diagnosis include contusion, fracture, infection. patient exam is concerning for fracture. xray was obtained. which showed evidence of fracture. because of presence of fracture patient was given a walking hard shoe and a cane. patient was also advised to rest and follow up outpatient with podiatry. advised patient to return to ED for any worsening symptoms and as needed. Other X-Ray Diagnostic Results Other X-Ray Diagnostic Results : X-Ray ordered: left foot xray # of Views/Limited Vs Complete: 3 View Indication: Pain EP Interpretation: Yes Interpretation: no dislocation, other - soft tissue swelling and first digit proximal phalangeal fracture Impression: Other - actue fracture of the first toe Electronically Signed by: electronically signed by my Dr. Shelton Guzman MD Last Vital Signs Date Time Temp Pulse Resp B/P (MAP) Pulse Ox O2 Delivery O2 Flow Rate FiO2 02/23/19 12:59 98.0 76 18 132/74 98 Room Air Status: improved Disposition: HOME, SELF-CARE Condition: Stable Scripts Ibuprofen* (MOTRIN*) 600 Mg Tablet 600 MG ORAL Q8H PRN for For Pain, #20 TAB 0 Refills Prov: Babatunde Guzman MD 02/23/19 Hydrocodone Bit/Acetaminophen 5-325* (NORCO 5-325*) 1 Each Tablet 1 TAB ORAL Q6H PRN for For Pain, #20 TAB 0 Refills Prov: Babatunde Guzman MD 02/23/19 Patient Instructions: Toe Fracture, [id number], Cane Use, Podiatric Shoe Babatunde Guzman MD Feb 23, 2019 21:43
== END 2019-02-23 12:59 | disposition home or self-care (01) ==
LOC: EMR 12:25
DX: S92.415A Nondisplaced fracture of proximal phalanx of left great toe, initial encounter for closed fracture (principal); W20.8XXA Other cause of strike by thrown, projected or falling object, initial encounter; Y92.9 Unspecified place or not applicable
CPT/HCPCS: 73630; Z7502; 99283